=== PATIENT | male | born 1970 | race African-American/Black ===

== ENCOUNTER 2017-05-14 22:38 | Emergency (ER) | payer BC, SELFPAY ==
--- NOTE | 2017-05-14 23:16 | RAD ---
THREE VIEWS RIGHT SHOULDER: Indication: Right shoulder pain. Comparison: None. FINDINGS: No acute fracture or subluxation is evident. Visualized right lung is clear. IMPRESSION: No acute osseous abnormality. POS: [facility]
[2017-05-15] MEDS ORDERED: Diazepam 5 MG TAB ONE (01:57)
[2017-05-15] MEDS ORDERED: Methocarbamol 1 GM/10 ML VIAL IM SCH (02:00)
[2017-05-15] MEDS ORDERED: Ketorolac Tromethamine 30 MG/ML VIAL ONE (02:06)
== END 2017-05-15 02:42 | disposition home or self-care (01) ==
LOC: ERS 22:38
DX: M62.838 Other muscle spasm (principal); I10 Essential (primary) hypertension; F17.210 Nicotine dependence, cigarettes, uncomplicated
CPT/HCPCS: 96372; 99406; J1885; J2800

== ENCOUNTER 2025-01-14 08:48 | Outpatient (CLI) | payer OTHER ==
[2025-01-14 09:58] LABS: #Basophils 0.04 10x3/uL (0.0-0.2); #Eosinophils 0.22 10x3/uL (0.0-0.7); #Monocytes 0.43 10x3/uL (0.11-0.59); #Neutrophils 3.82 10x3/uL (1.40-6.50); %Basophils 0.6 % (0.0-1.0); %Eosinophils 3.4 % (0.0-10.0); %Lymphocytes 29.7 % (21.0-51.0); %Monocytes 6.7 % (0.0-10.0); %Neutrophils 59.3 % (42.0-75.0); Hematocrit 44.3 % (42.0-52.0); Hemoglobin 13.9 g/dL (14.0-18.0); Mean Corpuscular Hemoglobin 27.7 pg (27.0-31.0); Mean Corpuscular Volume 88.2 fL (78.0-98.0); Platelet Count 245 10x3/uL (130-400); Red Blood Cell (RBC) Count 5.02 mill/uL (4.70-6.10); White Blood Cell (WBC) Count 6.44 10x3/uL (4.8-10.8)
[2025-01-14 10:18] LABS: Anion Gap 14 mmol/L (10-20); BUN (Urea Nitrogen) 19 mg/dL (8.4-25.7); Calc. Creatinine Clearance 0 mL/min (70-130); Calcium 9.3 mg/dL (7.8-10.44); Carbon Dioxide 25 mmol/L (22-29); Chloride 108 mmol/L (98-107); Glucose 100 mg/dL (70-105); Potassium 4.7 mmol/L (3.5-5.1); Sodium 142 mmol/L (136-145)
[2025-01-14 10:23] LABS: Bacteria/HPF None Seen HPF (None Seen); Glucose, Urine (Dipstick) Normal (Negative); Leukocyte Negative Leu/uL (Negative); Protein, Urine (Dipstick) Negative (Neg-Trace); RBC/HPF 0-3 HPF (0-3); Specific Gravity, Urine 1.024 (1.002-1.036); WBC/HPF 0-3 HPF (0-3)
[2025-01-14 10:27] LABS: INR-International Normal Ratio 1.0; Prothrombin Time 12.7 sec (12.0-14.7)
[2025-01-14 10:28] LABS: PTT 29.0 sec (22.9-36.1)
== END 2025-01-14 08:49 | disposition home or self-care (01) ==
LOC: LABBT 08:48
PROVIDERS: ATTEND Urology
DX: Z01.818 Encounter for other preprocedural examination (principal); R97.20 Elevated prostate specific antigen [PSA]
CPT/HCPCS: 71046; 80048; 81001; 84153; 85025; 85610; 85730; 87086; 93005; 93010